=== PATIENT | female | born 1950 | race Caucasian/White ===

== ENCOUNTER 2020-08-15 12:01 | Inpatient (IN) | payer OTHER ==
[~2020-08-15] VITALS: Ht 165.1 cm; Wt 5.0 kg
[2020-08-15] MEDS ORDERED: VALSARTAN-HCTZ1 EAC4 PO (12:20)
[2020-08-15] MEDS ORDERED: FLECAINIDE ACET50 MG PO (12:20)
[2020-08-15] MEDS ORDERED: TIROSINT150 MCG PO (12:20)
[2020-08-15] MEDS ORDERED: TOPROL XL25 M1 PO (12:20)
[2020-08-15] MEDS ORDERED: NORVASC5 MG PO (12:21)
[2020-08-15] MEDS ORDERED: XARELTO20 MG PO (12:21)
== END 2020-08-18 20:03 | disposition home or self-care (01) | DRG 812 ==
LOC: ER 12:01 → SURG 19:03
PROVIDERS: ADMIT Internal Medicine; ATTEND Internal Medicine
PROC: 4A12X4Z Monitoring of Cardiac Electrical Activity, External Approach (ICD-10-PCS; 2020-08-15)
PROC: BW21ZZZ Computerized Tomography (CT Scan) of Abdomen and Pelvis (ICD-10-PCS; 2020-08-15)
PROC: 30233N1 Transfusion of Nonautologous Red Blood Cells into Peripheral Vein, Percutaneous Approach (ICD-10-PCS; principal; 2020-08-16)
PROC: B24BZZZ Ultrasonography of Heart with Aorta (ICD-10-PCS; 2020-08-16)
DX: D50.8 Other iron deficiency anemias (principal); N17.8 Other acute kidney failure; I48.19 Other persistent atrial fibrillation; I48.0 Paroxysmal atrial fibrillation; E03.8 Other specified hypothyroidism; Z79.01 Long term (current) use of anticoagulants